=== PATIENT | female | born 1945 | race Caucasian/White ===

== ENCOUNTER 2022-05-23 09:57 | Outpatient (CLI) | payer OTHER | END 2022-05-23 20:28 | disposition home or self-care (01) | LOC: SRD 09:57 | PROVIDERS: ATTEND Family Medicine | DX: C50.919 Malignant neoplasm of unspecified site of unspecified female breast (principal); I25.10 Atherosclerotic heart disease of native coronary artery without angina pectoris; M19.90 Unspecified osteoarthritis, unspecified site; M47.819 Spondylosis without myelopathy or radiculopathy, site unspecified | CPT/HCPCS: 71046-TC ==